=== PATIENT | male | born 1985 | race American Indian/Alaskan Native ===

== ENCOUNTER 2019-02-10 11:13 | Emergency (ER) | payer OTHER ==
[2019-02-10 11:30] VITALS: BP 124/74
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
[2019-02-10] MEDS ORDERED: CYCLOBENZAPRINE 10 MG TAB PO ONE (12:39)
[2019-02-10] MEDS ORDERED: IBUPROFEN 800 MG TAB PO ONE (12:39)
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
== END 2019-02-10 14:45 | disposition home or self-care (01) ==
LOC: ED 11:13
DX: M54.5 Low back pain (principal); F17.200 Nicotine dependence, unspecified, uncomplicated; F12.10 Cannabis abuse, uncomplicated; V49.59XA Passenger injured in collision with other motor vehicles in traffic accident, initial encounter; Y93.89 Activity, other specified; Y92.410 Unspecified street and highway as the place of occurrence of the external cause; Y99.8 Other external cause status; Z88.1 Allergy status to other antibiotic agents